=== PATIENT | male | born 1970 | race Hispanic/Latino ===

== ENCOUNTER 2016-06-23 08:54 | Inpatient (IN) | payer MEDICAID ==
[2016-06-23 09:51] LABS: Basophils % (Auto) 0.1 % (0.0-1.8); Eosinophils % (Auto) 6.3 % (0.0-4.3); Hematocrit 42.3 % (35.5-45.6); Hemoglobin 14.5 gm/dl (11.8-15.2); Mean Corpuscular HGB Conc 34 % (32-34); Mean Corpuscular Hemoglobin 30 pg (28-32); Mean Corpuscular Volume 88 fl (84-94); Platelet Count 184 K/mm3 (140-440); Red Blood Count 4.82 M/mm3 (3.65-5.03); Red Cell Distribution Width 13.3 % (13.2-15.2); White Blood Count 10.4 K/mm3 (4.5-11.0)
[2016-06-23 10:11] LABS: Anion Gap 16 mmol/L; Blood Urea Nitrogen 19 mg/dL (9-20); Calcium 9.7 mg/dL (8.4-10.2); Carbon Dioxide 26 mmol/L (22-30); Chloride 99.2 mmol/L (98-107); Glucose 157 mg/dL (75-100); Potassium 3.8 mmol/L (3.6-5.0); Sodium 137 mmol/L (137-145)
[2016-06-23] MEDS ORDERED: MORPHINE IV ONE ×2 (10:17→12:06)
[2016-06-23] MEDS ORDERED: ZOFRAN IV ONE (10:17)
--- NOTE | 2016-06-23 10:18 | Emergency Department Report ---
ED Chest Pain HPI - General Chief Complaint: Chest Pain Stated Complaint: CHEST PAIN Time Seen by Provider: 06/23/16 10:05 Source: patient, EMS Mode of arrival: Stretcher Limitations: No Limitations - History of Present Illness Initial Comments: States he awoke at about 5:30 in the AM with a panic attack. He did have some hyperventilation. He took a Xanax and seemed to improve. Then later on in the morning he developed left-sided chest pain. The pain is sharp. The patient states he does have frequent chest pain which is sharp but not this persistent. He stated that it felt worse when he laid on his back and better when he laid on his side. It was not pleuritic. It is not associated with nausea vomiting or cough. The patient has had no calf or leg pain. He states he gets an occasional "cramp in his right ankle which gets swollen". 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 He states he has a primary care physician. The patient has had 2 cardiac catheterizations in the past. 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 His last catheterization was 8 years ago. He states that he is a heavy smoker and has not followed up with cardiology since then. He knows nothing about his right sided heart pressures. He denies ever being on an anti-coagulant medication. He states he was told at some point his PDA repair would have to be revised. He has not followed up on this. The patient was given nitroglycerin and aspirin prior to arrival by EMS. According to EMS, the pain is improved. However, this is not apparent on patient arrival. MD Complaint: chest pain -: hour(s) Onset: during rest Pain Location: left chest Pain Radiation: none Severity: moderate Severity scale (0 -10): 6 Quality: sharp Consistency: constant Improves With: nothing Worsens With: other (position) re: dyspnea (sts due to panic) - Related Data Home Medications Medication Instructions Recorded Confirmed Last Taken ALPRAZolam [Xanax TAB] 0.5 mg PO TID PRN 06/23/16 06/23/16 06/23/16 0.5 mg Allergies Allergy/AdvReac Type Severity Reaction Status Date / Time No Known Allergies Allergy Unverified 04/16/17 09:02 STEWART score - Stewart Score Age > 65: (0) No Aspirin use within the Past 7 Days: (0) No 3 or more CAD Risk Factors: (1) Yes 2 or more Angina events in past 24 hrs: (0) No Known CAD with more than 50% Stenosis: (0) No Elevated Cardiac Markers: (0) No ST Deviation Greater than 0.5mm: (0) No STEWART Score: 1 ED Review of Systems ROS: Stated complaint: CHEST PAIN Other details as noted in HPI ED Past Medical Hx - Past Medical History Previous Medical History?: Yes Hx Hypertension: Yes Hx Psychiatric Treatment: Yes (anxiety) - Surgical History Hx Open Heart Surgery: Yes (at 2 years old) Hx Appendectomy: Yes Additional Surgical History: 2 cardiac caths-last one 7-8 years ago - Social History Smoking Status: Current Every Day Smoker Substance Use Type: None - Medications Home Medications: Home Medications Medication Instructions Recorded Confirmed Last Taken Type ALPRAZolam [Xanax TAB] 0.5 mg PO TID PRN 06/23/16 06/23/16 06/23/16 History 0.5 mg ED Physical Exam - General Limitations: No Limitations, Other (patient appears to be having positional discomfort white to lay on his left side) General appearance: alert, in no apparent distress - Head Head exam: Present: atraumatic, normocephalic - Eye Eye exam: Present: normal appearance, PERRL, EOMI. Absent: scleral icterus - ENT ENT exam: Present: mucous membranes moist - Neck Neck exam: Present: normal inspection - Respiratory Respiratory exam: Present: normal lung sounds bilaterally. Absent: respiratory distress - Cardiovascular Cardiovascular Exam: Present: regular rate, normal rhythm, systolic murmur (3/6 systolic murmur heard best at the right second intercostal space). Absent: diastolic murmur, rubs, gallop - GI/Abdominal GI/Abdominal exam: Present: soft, normal bowel sounds. Absent: distended, tenderness, guarding, rebound, rigid - Rectal Rectal exam: Present: deferred - Extremities Exam Extremities exam: Present: normal inspection - Back Exam Back exam: Present: normal inspection - Neurological Exam Neurological exam: Present: alert, oriented X3, CN II-XII intact. Absent: motor sensory deficit - Psychiatric Psychiatric exam: Present: normal affect, normal mood - Skin Skin exam: Present: warm, dry, intact, normal color. Absent: rash ED Course Vital Signs 06/23/16 06/23/16 06/23/16 08:55 08:56 08:57 Temperature Pulse Rate 89 92 H 93 H Respiratory 14 12 13 Rate Blood Pressure 107/69 O2 Sat by Pulse 99 99 Oximetry 06/23/16 06/23/16 06/23/16 09:00 09:05 09:15 Temperature 98.4 F Pulse Rate 85 87 Respiratory 18 18 25 H Rate Blood Pressure 112/88 115/82 O2 Sat by Pulse 98 98 98 Oximetry 06/23/16 09:31 Temperature Pulse Rate 79 Respiratory 16 Rate Blood Pressure 131/83 O2 Sat by Pulse 97 Oximetry - Reevaluation(s) Reevaluation #1: The patient's chest pain is atypical in nature and not significantly predictive of an acute coronary syndrome. However, he does have multiple risk factors. His PDA status does require an update anyway. He is admitted by Dr. Costa for cardiology consultation, further care and evaluation. 06/23/16 10:35 ED Medical Decision Making - Lab Data Result diagrams: 06/23/16 09:37 06/23/16 09:37 Laboratory Results - last 24 hr 06/23/16 06/23/16 09:37 09:37 WBC 10.4 RBC 4.82 Hgb 14.5 Hct 42.3 MCV 88 MCH 30 MCHC 34 RDW 13.3 Plt Count 184 Lymph % (Auto) 30.3 Wayne % (Auto) 6.6 Eos % (Auto) 6.3 H Baso % (Auto) 0.1 Lymph # 3.1 Wayne # 0.7 Eos # 0.7 H Baso # 0.0 Seg Neutrophils % 56.7 Seg Neutrophils # 5.9 Sodium 137 Potassium 3.8 Chloride 99.2 Carbon Dioxide 26 Anion Gap 16 BUN 19 Creatinine 1.0 Estimated GFR > 60 BUN/Creatinine Ratio 19.00 Glucose 157 H Calcium 9.7 Troponin T < 0.010 - EKG Data -: EKG Interpreted by Me EKG shows normal: sinus rhythm, axis, intervals, ST-T waves - EKG Data Interpretation: nonspecific ST-T wave yvonne, other (RSR in V1 consistent with incomplete right bundle branch block. No acute ischemic changes) - Radiology Data interpreted by me: Chest x-ray showed a slightly abnormal Mediastinum was not wide. I suspect this is reflective of the patient's PDA hx. very soft call however. There is no acute process. Critical care attestation.: If time is entered above; I have spent that time in minutes in the direct care of this critically ill patient, excluding procedure time. ED Disposition Clinical Impression: S/P PDA repair Chest pain Qualifiers: Chest pain type: unspecified Qualified Code(s): R07.9 - Chest pain, unspecified Disposition: OP ADMITTED IP TO THIS HOSP Is pt being admited?: Yes Does the pt Need Aspirin: Yes Condition: Stable Instructions: Chest Pain (ED) Referrals: PRIMARY CARE, [Primary Care Provider] - 3-5 Days Time of Disposition: 10:42
[2016-06-23 10:44] LABS: INR 0.93 (0.87-1.13)
[2016-06-23 10:45] LABS: Partial Thromboplastin Time 33.8 Sec. (24.2-36.6)
[2016-06-23 10:54] LABS: Alanine Aminotransferase 22 units/L (7-56); Albumin 3.9 g/dL (3.9-5); Albumin/Globulin Ratio 1.4 %; Alkaline Phosphatase 97 units/L (35-129); Bilirubin,Total 0.4 mg/dL (0.1-1.2); Total Protein 6.7 g/dL (6.3-8.2)
[2016-06-23 10:56] LABS: Bilirubin,Direct < 0.2 mg/dL (0-0.2)
[2016-06-23] MEDS ORDERED: LOVENOX SUB-Q SCH (11:00)
[2016-06-23] MEDS ORDERED: BABY ASPIRIN PO SCH (11:00)
--- NOTE | 2016-06-23 11:19 | XRay Report ---
AP CHEST : 06/23/16 08:54:00 CLINICAL: Retention. COMPARISON:None FINDINGS: Normal heart and pulmonary vessels. The lungs are normally expanded and clear. The bones and soft tissues are unremarkable. IMPRESSION: Normal chest.
--- NOTE | 2016-06-23 11:49 | Admit Criteria Form ---
Admission Criteria Documentation: CARDIOLOGY GRG Clinical Indications for Admission to Inpatient Care ( Place 'X' for any and all applicable criteria): Hospital admission is needed for appropriate care of the patient because of ANY ONE of the following (1): [ ] I. Hemodynamic instability as indicated by ALL of the following (1)(2)(3) (4)(5) [ ]a) Vital signs or other findings not as expected for chronic patient condition or baseline [ ]b) Instability indicated by ANY ONE of the following: [ ]i) Hypotension [ ]ii) Symptomatic Tachycardia unresponsive to treatment ( e.g., analgesia, fluids, sedation as indicated) [ ]iii) Inadequate perfusion indicated by ANY ONE of the following: [ ] 1) Lactic acidosis (> 2 mmol/L) [ ] 2) New abnormal capillary refill (> 3 seconds) [ ] 3) Reduced urine output [ ] 4) New altered mental status [ ]iv) Orthostatic vital sign changes unresponsive to treatment (e.g., fluids) [ ]v) IV inotropic or vasopressor medication required to maintain adequate blood pressure or perfusion [ ] II. Severe heart failure as indicated by ANY ONE of the following(17)(18) [ ]a) Respiratory distress [ ]b) Hypotension [ ]c) Anasarca (refractory to outpatient therapy) [ ]d) Cardiac arrhythmias of immediate concern [ ]e) Myocardial ischemia [ ] III. Cardiac arrhythmias or findings of immediate concern indicated by ANY ONE of the following (19)(20): [ ] a) Heart rhythms that are inherently dangerous or unstable indicated by ANY ONE of the following (21)(22)(23): [ ] i) Resuscitated ventricular fibrillation or cardiac arrest [ ] ii) Ventricular escape rhythm [ ] iii) Sustained ventricular tachycardia (30 seconds or more of ventricular rhythm at greater than 100 beats per minute) [ ] iv) Nonsustained ventricular tachycardia and ANY ONE of the following: [ ] 1) Suspected cardiac ischemia as cause or consequence of ventricular tachycardia [ ] 2) In setting of acute myocarditis [ ] b) Unstable cardiac conduction defects indicated by ANY ONE of the following(23)(24)(25) [ ] i) Type II second-degree atrioventricular block [ ]ii) Third-degree atrioventricular block [ ]iii) New-onset left bundle branch block with suspected myocardial ischemia [ ]c) Any heart rhythm and ANY ONE of the following (21)(22)(26)(27) (28) [ ] i) Continuous long-term ECG monitoring needed (e.g., initiation of drug requiring monitoring for more than 24 hours) [ ] ii) Patient has automatic implanted cardioverter defibrillator that is repeatedly firing, malfunctioning, or in need of immediate adjustment of settings beyond the scope of ambulatory or observation care [ ]d) Heart rhythms of concern due to ANY ONE of the following: [ ] i) Hypotension [ ] ii) Respiratory distress [ ] iii) Association with other significant symptoms (e.g., bradycardia with syncope or ongoing dizziness, supraventricular tachycardia with chest pain (14)(15)(17) [ ] IV. Monitoring for cardiac contusion beyond the scope of observation care needed [A](30)(31)(32) [ ] V. Surgical or device complication (e.g., valve replacement complication , pacemaker dysfunction) (35)(41)(44)(45)(46) [ ] . Inpatient palliative care needed. [B](49) Also use Inpatient Palliative Care Criteria [ ] VII. Nonbacterial thrombotic (marantic) endocarditis (36)(43)(47)(48) [X ] VIII. Cardiology condition, symptom, or finding for which emergency and observation care has failed or are not considered appropriate. [ ] IX. Acute valvular disease requiring inpatient as indicated by ANY ONE of the following (41) [ ]a) Acute valvular regurgitation (42) [ ]b) Noninfectious valvulitis (43) [ ]c) Obstructive valve thrombosis [ ]d) Paravalvular leak [ ]e) Other significant valvular disorder remaining after emergency or observation level of care (as appropriate) [ ]X. Pericardial disease requiring inpatient treatment as indicated by ANY ONE of the following (33)(34)(35)(36)(37) [ ]a) Suspected tamponade (38)(39)(40) [ ]b) Hemopericardium [ ]c) Other significant pericardial disorder remaining after emergency or observation level of care (as appropriate) [ ] XI. Cardiac ischemia beyond scope of emergency and observation care. [ ] XII. Hypertension requiring inpatient treatment as indicated by ANY ONE of the following (6)(7)(8) [ ]a) SBP greater than 220 mm Hg or DBP greater than 120 mmHg despite treatment [ ]b) SBP greater than 140 mm Hg or DBP greater than 100 mm Hg with evidence of acute end organ damage as indicated by ANY ONE of the following [ ] i) Altered mental status [ ] ii) Acute renal failure as indicated by new onset of ANY ONE of the following (9)(10)(11)(12)(13) [ ]1) 3-fold rise in serum creatinine from baseline [ ]2) Serum creatinine greater than 4 mg/dL ( 354 micromoles/L) with acute rise greater than 0.5 mg/dL (44.2 micromoles/L) [ ]3) Reduction of more than 75% in estimated glomerular filtration rate from baseline [ ]4) Estimated glomerular filtration rate less than 35 mL/min/1.73m2 (0.59 mL/sec/1.73m2) in child up to 18 years of age [ ]5) Cessation of urine output indicated by ALL of the following [ ]A. Adequate volume status [ ]B. Inadequate urine output as indicated by ANY ONE of the following [ ]a. Urine output less than 0.3 mL/kg/hr for 24 hours [ ]b. Anuria (urine output less than 0.1 mL/kg/hr) for 12 hours [ ] iii) Aortic dissection [ ] iv) Myocardial Ischemia [ ] v) Left ventricular heart failure [ ]vi) Retinal Hemorrhage [ ]vii) Other significant finding [ ]c) Hypertension in child requiring inpatient treatment as indicated by ALL of the following(14)(15)(16) [ ] i) Outpatient treatment not effective, not available, or not appropriate [ ]ii) SBP or DBP greater than 95th percentile for age [ ]iii) Evidence of acute end organ damage as indicated by ANY ONE of the following [ ]1) Altered mental status [ ]2) Acute renal failure as indicated by new onset of ANY ONE of the following(9)(10)(11)(12)(13) [ ]A. 3-fold rise in serum creatinine from baseline [ ]B. Serum creatinine greater than 4 mg/dL (354 micromoles/L) with acute rise greater than 0.5 mg/dL (44.2 micromoles/L) [ ]C. Reduction of more than 75% in estimated glomerular filtration rate from baseline [ ]D. Estimated glomerular filtration rate less than 35 mL/min/1.73m2 (0.59 mL/sec/1.73m2) in child up to 18 years of age [ ]E. Cessation of urine output indicated by ALL of the following [ ]a. Adequate volume status [ ]b. Inadequate urine output as indicated by ANY ONE of the following [ ]i) Urine output less than 0.3 mL/kg/hr for 24 hours [ ]ii) Anuria ( urine output less than 0.1 mL/kg/hr) for 12 hours [ ]3) Severe headache [ ]4) Visual disturbance [ ]5) Retinal hemorrhage [ ]6) Other significant finding [ ]XIII. Complications of transplanted heart indicated by ANY ONE of the following(61): [ ]a) Acute graft rejection requiring inpatient management (eg, intravenous immunosuppression)(62)(63) [ ]b) Acute graft heart failure indicated by ANY ONE of the following(64): [ ]i) Hemodynamic instability [ ]ii) Cardiac arrhythmias of immediate concern [ ]iii) Pulmonary edema that is very severe (eg, mechanical ventilation needed, imminent or likely, need for 100% oxygen to keep oxygen saturation above 90%) [ ]iv) Pulmonary edema that is persistent as indicated by ALL of the following: [ ]1) New need for oxygen therapy to keep oxygen saturation above 90% (or increased FiO2 need from baseline) [ ]2) Has not improved sufficiently with emergency department or observation care IV diuretics or other heart failure treatments[E] [ ]v) Altered mental status that is severe or persistent [ ]vi) Increased creatinine (new on laboratory test) with reduction of more than 50% in estimated glomerular filtration rate from baseline [ ]vii) Progressively (ongoing) rising creatinine (known from past laboratory test) with reduction of more than 25% in estimated glomerular filtration rate from baseline [ ]viii) Acute renal failure [ ]ix) Acute peripheral ischemia (eg, examination shows pulseless, cool, mottled, or cyanotic extremity) [ ]x) Pulmonary artery catheter monitoring needed [ ]xi) Other sign or symptom of heart failure requiring inpatient treatment (ie, too severe or not responsive to outpatient and observation care treatment) [ ]c) Infection requiring inpatient management (eg, Hemodynamic instability, need for intravenous antimicrobial treatment)(66)(67)(68)(69)(70) [ ]d) Cardiac allograft vasculopathy requiring inpatient management ( eg evidence of cardiac ischemia)(71) [ ]e) Other complication of transplanted heart (eg, stroke, severe pulmonary hypertension, severe valvular dysfunction) requiring inpatient management(72) The original [facility] [employer] content created by [facility] has been revised. The portions of the content which have been revised are identified through the use of italic text or in bold, and [facility] has neither reviewed nor approved the modified material. All other unmodified content is copyright [facility] [employer]. Please see references footnoted in the original [facility] [employer] edition 2016 Admission Criteria Met: Yes
[2016-06-23] MEDS ORDERED: MORPHINE ONE (12:04)
[2016-06-23 12:20] LABS: Urine Drugs of Abuse Note Disclamer
[2016-06-23 12:29] LABS: Bilirubin,Urine NEG (Negative); Blood,Urine NEG (Negative); Ketones,Urine NEG (Negative); Leukocyte Esterase,Urine NEG (Negative); Mucus,Urine FEW /HPF; Nitrite,Urine NEG (Negative); Protein,Urine <15 mg/dL mg/dL (Negative); Urobilinogen,Urine < 2.0 mg/dL (<2.0)
--- NOTE | 2016-06-23 13:36 | History and Physical Report ---
History of Present Illness Date of examination: 06/23/16 Date of admission: 06/23/16 10:42 Chief complaint: Chief Complaint:L sided chest pain since AM. History of present illness: 45 y/o WM with Hx of PDA(repaired} CAD Anxiety and depression comes in for severe chest pain L precordial region.Sharp in nature.Intermittent.10/10 in intensity..Has Hx of GERD but he feels that this pain is different.No SOB / Diaphoresis/Palpitations. No Nausea or vomiting. Past History Past Medical History: CAD, hypertension, other (PDA Anxiety) Past Surgical History: PTCA, Other (PDA repair) Social history: lives with family, smoking (1 ppd) Family history: hypertension Medications and Allergies Allergies Allergy/AdvReac Type Severity Reaction Status Date / Time No Known Allergies Allergy Verified 06/23/16 10:44 Home Medications Medication Instructions Recorded Confirmed Last Taken Type ALPRAZolam [Xanax TAB] 0.5 mg PO TID PRN 06/23/16 06/23/16 06/23/16 History 0.5 mg Active Meds: Active Medications Aspirin (Baby Aspirin) 162 mg PO ONCE DAVIAN Enoxaparin Sodium (Lovenox) 40 mg SUB-Q QDAY@1000 DAVIAN Review of Systems All systems: negative Constitutional: no weight loss, no weight gain Ears, nose, mouth and throat: no ear pain, no ear discharge, no tinnitis, no decreased hearing, no nose pain, no nasal congestion, no nasal discharge, no sinus pressure, no sinus pain Cardiovascular: chest pain Respiratory: no cough, no cough with sputum, no excessive sputum, no hemoptysis , no shortness of breath, no dyspnea on exertion Gastrointestinal: no abdominal pain, no nausea, no vomiting, no diarrhea, no constipation, no change in bowel habits, no hematemesis, no coffee ground emesis Genitourinary Male: no dysuria, no hematuria, no flank pain, no discharge, no urinary frequency, no urinary hesitancy, no nocturia, no incontinence, no erectile dysfunction, no genital pain Musculoskeletal: no neck stiffness, no neck pain, no shooting arm pain, no arm numbness/tingling, no low back pain, no shooting leg pain, no leg numbness/ tingling, no redness of joints Integumentary: no rash, no pruritis, no redness, no sores, no wounds, no jaundice Neurological: no head injury, no transient paralysis, no paralysis, no weakness , no parathesias, no numbness, no tingling, no seizures, no syncope, no tremors , no ataxia, no lack of coordination Psychiatric: anxiety, depression Endocrine: no cold intolerance, no heat intolerance, no polyphagia, no excessive thirst, no polydipsia, no polyuria, no nocturia, no excessive sweating , no flushing, no weight change Hematologic/Lymphatic: no easy bruising, no easy bleeding Allergic/Immunologic: no urticaria, no allergic rhinitis, no wheezing Exam - Constitutional Vitals: Temp Pulse Resp BP Pulse Ox 98.4 F 69 9 L 97/64 98 06/23/16 09:05 06/23/16 12:30 06/23/16 12:30 06/23/16 12:30 06/23/16 12:30 General appearance: Present: no acute distress, well-nourished - EENT Eyes: Present: PERRL ENT: hearing intact, clear oral mucosa - Neck Neck: Present: supple, normal ROM - Respiratory Respiratory effort: normal Respiratory: bilateral: CTA - Cardiovascular Heart rate: 76 Rhythm: regular Heart Sounds: Present: S1 & S2. Absent: rub, click - Extremities Extremities: pulses symmetrical, No edema Peripheral Pulses: within normal limits - Abdominal General gastrointestinal: Present: soft, non-tender, non-distended, normal bowel sounds Male genitourinary: Present: normal - Integumentary Integumentary: Present: clear, warm, dry - Musculoskeletal Musculoskeletal: gait normal, strength equal bilaterally - Psychiatric Psychiatric: appropriate mood/affect, intact judgment & insight - Neurologic Neurologic: CNII-XII intact, moves all extremities Results - Labs CBC & Chem 7: 06/23/16 09:37 06/23/16 09:37 Labs: Laboratory Last Values WBC 10.4 K/mm3 (4.5-11.0) 06/23/16 09:37 RBC 4.82 M/mm3 (3.65-5.03) 06/23/16 09:37 Hgb 14.5 gm/dl (11.8-15.2) 06/23/16 09:37 Hct 42.3 % (35.5-45.6) 06/23/16 09:37 MCV 88 fl (84-94) 06/23/16 09:37 MCH 30 pg (28-32) 06/23/16 09:37 MCHC 34 % (32-34) 06/23/16 09:37 RDW 13.3 % (13.2-15.2) 06/23/16 09:37 Plt Count 184 K/mm3 (140-440) 06/23/16 09:37 Lymph % (Auto) 30.3 % (13.4-35.0) 06/23/16 09:37 [place] % (Auto) 6.6 % (0.0-7.3) 06/23/16 09:37 Eos % (Auto) 6.3 % (0.0-4.3) H 06/23/16 09:37 Baso % (Auto) 0.1 % (0.0-1.8) 06/23/16 09:37 Lymph # 3.1 K/mm3 (1.2-5.4) 06/23/16 09:37 [place] # 0.7 K/mm3 (0.0-0.8) 06/23/16 09:37 Eos # 0.7 K/mm3 (0.0-0.4) H 06/23/16 09:37 Baso # 0.0 K/mm3 (0.0-0.1) 06/23/16 09:37 Seg Neutrophils % 56.7 % (40.0-70.0) 06/23/16 09:37 Seg Neutrophils # 5.9 K/mm3 (1.8-7.7) 06/23/16 09:37 PT 12.4 Sec. (12.2-14.9) 06/23/16 10:25 INR 0.93 (0.87-1.13) 06/23/16 10:25 APTT 33.8 Sec. (24.2-36.6) 06/23/16 10:25 Sodium 137 mmol/L (137-145) 06/23/16 09:37 Potassium 3.8 mmol/L (3.6-5.0) 06/23/16 09:37 Chloride 99.2 mmol/L (98-107) 06/23/16 09:37 Carbon Dioxide 26 mmol/L (22-30) 06/23/16 09:37 Anion Gap 16 mmol/L 06/23/16 09:37 BUN 19 mg/dL (9-20) 06/23/16 09:37 Creatinine 1.0 mg/dL (0.8-1.5) 06/23/16 09:37 Estimated GFR > 60 ml/min 06/23/16 09:37 BUN/Creatinine Ratio 19.00 % 06/23/16 09:37 Glucose 157 mg/dL (75-100) H 06/23/16 09:37 Calcium 9.7 mg/dL (8.4-10.2) 06/23/16 09:37 Total Bilirubin 0.4 mg/dL (0.1-1.2) 06/23/16 09:37 Direct Bilirubin < 0.2 mg/dL (0-0.2) 06/23/16 09:37 AST 17 units/L (5-40) 06/23/16 09:37 ALT 22 units/L (7-56) 06/23/16 09:37 Alkaline Phosphatase 97 units/L (35-129) 06/23/16 09:37 Troponin T < 0.010 ng/mL (0.00-0.029) 06/23/16 09:37 NT-Pro-B Natriuret Pep 67.72 pg/mL (0-450) 06/23/16 09:37 Total Protein 6.7 g/dL (6.3-8.2) 06/23/16 09:37 Albumin 3.9 g/dL (3.9-5) 06/23/16 09:37 Albumin/Globulin Ratio 1.4 % 06/23/16 09:37 Urine Color Yellow (Yellow) 06/23/16 11:59 Urine Turbidity Clear (Clear) 06/23/16 11:59 Urine pH 5.0 (5.0-7.0) 06/23/16 11:59 Ur Specific [place] 1.019 (1.003-1.030) 06/23/16 11:59 Urine Protein <15 mg/dl mg/dL (Negative) 06/23/16 11:59 Urine Glucose (UA) Neg mg/dL (Negative) 06/23/16 11:59 Urine Ketones Neg mg/dL (Negative) 06/23/16 11:59 Urine Blood Neg (Negative) 06/23/16 11:59 Urine Nitrite Neg (Negative) 06/23/16 11:59 Urine Bilirubin Neg (Negative) 06/23/16 11:59 Urine Urobilinogen < 2.0 mg/dL (<2.0) 06/23/16 11:59 Ur Leukocyte Esterase Neg (Negative) 06/23/16 11:59 Urine WBC (Auto) 1.0 /HPF (0.0-6.0) 06/23/16 11:59 Urine RBC (Auto) 1.0 /HPF (0.0-6.0) 06/23/16 11:59 Urine Mucus Few /HPF 06/23/16 11:59 Urine Opiates Screen Presumptive negative 06/23/16 11:59 Urine Methadone Screen Presumptive negative 06/23/16 11:59 Ur Barbiturates Screen Presumptive negative 06/23/16 11:59 Ur Phencyclidine Scrn Presumptive negative 06/23/16 11:59 Ur Amphetamines Screen Presumptive negative 06/23/16 11:59 U Benzodiazepines Scrn Presumptive positive 06/23/16 11:59 Urine Cocaine Screen Presumptive negative 06/23/16 11:59 U Marijuana (THC) Screen Presumptive positive 06/23/16 11:59 Short CBC 06/23/16 Range/Units 09:37 WBC 10.4 (4.5-11.0) K/mm3 Hgb 14.5 (11.8-15.2) gm/dl Hct 42.3 (35.5-45.6) % Plt Count 184 (140-440) K/mm3 BMP 06/23/16 09:37 Sodium 137 Potassium 3.8 Chloride 99.2 Carbon Dioxide 26 BUN 19 Creatinine 1.0 Glucose 157 H Calcium 9.7 Cardiac Enzymes 06/23/16 Range/Units 09:37 Troponin T < 0.010 (0.00-0.029) ng/mL Liver Function 06/23/16 Range/Units 09:37 Total Bilirubin 0.4 (0.1-1.2) mg/dL Direct Bilirubin < 0.2 (0-0.2) mg/dL AST 17 (5-40) units/L ALT 22 (7-56) units/L Alkaline Phosphatase 97 (35-129) units/L Albumin 3.9 (3.9-5) g/dL Urine 06/23/16 Range/Units 11:59 Urine Color Yellow (Yellow) Urine pH 5.0 (5.0-7.0) Ur Specific [place] 1.019 (1.003-1.030) Urine Protein <15 mg/dl (Negative) mg/dL Urine Glucose (UA) Neg (Negative) mg/dL Assessment and Plan Advance Directives: Yes (Full code) Plan of care discussed with patient/family: Yes - Patient Problems (1) Acute coronary syndrome Current Visit: Yes Status: Acute Plan to address problem: W/u for ruling out Ischemic heart disease.Lexiscan in AM.Serial cardiac enzymes (2) S/P PDA repair Current Visit: Yes Status: Chronic Plan to address problem: Will get ECHO and cardiology consult. (3) HTN (hypertension) Current Visit: Yes Status: Chronic Qualifiers: Hypertension type: essential hypertension Qualified Code(s): I10 - Essential (primary) hypertension Plan to address problem: Cont antihypertensives (4) Anxiety Current Visit: Yes Status: Chronic Plan to address problem: Cont Xanax (5) Depression Current Visit: Yes Status: Chronic Qualifiers: Depression Type: unspecified Major depression recurrence: M Active/ Remission status: A Major depression episode severity: M Psychotic features : P Trimester: T Qualified Code(s): F32.9 - Major depressive disorder, single episode, unspecified Plan to address problem: Cont sertraline (6) DVT prophylaxis Current Visit: Yes Status: Acute Plan to address problem: lovenox
[2016-06-23] MEDS ORDERED: SODIUM CHLORIDE FLUSH SYRINGE 10 ML IV PRN (13:53)
[2016-06-23] MEDS: XANAX PO PRN (14:16)
[2016-06-23] MEDS: DILAUDID IV PRN ×3 (14:17→21:45)
[2016-06-23 15:22] LABS: Creatine Kinase 61 units/L (55-170)
[2016-06-23 15:29] LABS: Creatine Kinase MB < 1.0 ng/mL (0.0-4.0)
[2016-06-23] MEDS ORDERED: PNEUMOVAX 23 IM ONE (19:08)
[2016-06-23] MEDS ORDERED: FLUARIX QUAD 2016-2017(36 MOS+) IM ONE (19:08)
[2016-06-23 20:55] LABS: Creatine Kinase 79 units/L (55-170); Creatine Kinase MB 1.2 ng/mL (0.0-4.0)
[2016-06-23] MEDS: HABITROL TD SCH (22:00)
[2016-06-24] MEDS: DILAUDID IV PRN ×7 (01:10→23:01)
[2016-06-24] MEDS: ZOFRAN IV PRN ×2 (06:15→23:11)
[2016-06-24] MEDS: TYLENOL PO PRN (06:15)
[2016-06-24] MEDS ORDERED: LEXISCAN IV ONE ×2 (09:24→09:29)
[2016-06-24] MEDS: LOVENOX SUB-Q SCH (12:01)
[2016-06-24] MEDS: XANAX PO PRN ×2 (12:08→23:01)
--- NOTE | 2016-06-24 17:13 | History and Physical Report ---
History of Present Illness Date of examination: 06/24/16 Date of admission: 06/23/16 10:42 Chief complaint: Chest Pain History of present illness: Pt complains of chest pain. Denies nausea, vomiting, SOB and palpitations. Past History Past Medical History: CAD, hypertension, other (PDA Anxiety) Past Surgical History: PTCA, Other (PDA repair) Social history: lives with family, smoking (1 ppd) Family history: hypertension Medications and Allergies Allergies Allergy/AdvReac Type Severity Reaction Status Date / Time No Known Allergies Allergy Verified 06/23/16 10:44 Home Medications Medication Instructions Recorded Confirmed Last Taken Type ALPRAZolam [Xanax TAB] 0.5 mg PO TID PRN 06/23/16 06/23/16 06/23/16 History 0.5 mg Active Meds: Active Medications Acetaminophen (Tylenol) 650 mg PO Q4H PRN PRN Reason: Pain, Mild (1-3) Last Admin: 06/24/16 06:15 Dose: 650 mg Alprazolam (Xanax) 0.5 mg PO TID PRN PRN Reason: Anxiety Last Admin: 06/24/16 12:08 Dose: 0.5 mg Aspirin (Baby Aspirin) 162 mg PO ONCE DAVIAN Last Admin: 06/23/16 14:02 Dose: 162 mg Enoxaparin Sodium (Lovenox) 40 mg SUB-Q QDAY@1000 [facility] Last Admin: 06/24/16 12:01 Dose: 40 mg Hydromorphone HCl (Dilaudid) 2 mg IV Q3H PRN PRN Reason: Pain , Severe (7-10) Last Admin: 06/24/16 15:46 Dose: 2 mg Nicotine (Habitrol) 21 mg TD QDAY@2200 [facility] Last Admin: 06/23/16 22:00 Dose: 21 mg Ondansetron HCl (Zofran) 4 mg IV Q3H PRN PRN Reason: Nausea And Vomiting Last Admin: 06/24/16 06:15 Dose: 4 mg Sodium Chloride (Sodium Chloride Flush Syringe 10 Ml) 10 ml IV PRN PRN PRN Reason: LINE FLUSH Review of Systems Constitutional: no weight loss, no weight gain, no fever, no chills, no sweats, no weakness, no daytime sleepiness Ears, nose, mouth and throat: no deferred, no ear pain, no decreased hearing, no nasal congestion, no mouth pain, no sore throat, no voice changes Cardiovascular: chest pain, high blood pressure, no orthopnea, no palpitations, no rapid/irregular heart beat Respiratory: no cough, no cough with sputum, no excessive sputum, no hemoptysis Gastrointestinal: no abdominal pain, no nausea, no vomiting, no diarrhea, no constipation, no change in bowel habits, no loss of appetite Musculoskeletal: no neck stiffness, no neck pain, no low back pain, no shooting leg pain, no leg numbness/tingling, no muscle weakness, no loss of height Integumentary: no deferred, no rash, no redness, no jaundice, no darkening of skin, no onychomycosis Neurological: no head injury, no transient paralysis, no paralysis, no weakness , no convulsions, no hearing difficulties Psychiatric: anxiety, depression, no memory loss, no hypersomnia, no hallucinations, no mood swings Endocrine: no cold intolerance, no excessive thirst, no polyuria, no thyroid mass Hematologic/Lymphatic: no easy bleeding, no lymphedema Allergic/Immunologic: no allergic rhinitis, no gluten intolerance Exam - Constitutional Vitals: Temp Pulse Resp BP Pulse Ox 97.4 F L 76 20 122/70 98 06/24/16 12:44 06/24/16 12:44 06/24/16 15:46 06/24/16 12:44 06/24/16 12:44 General appearance: Present: no acute distress, well-nourished - EENT Eyes: Present: PERRL ENT: hearing intact, clear oral mucosa - Neck Neck: Present: supple, normal ROM - Respiratory Respiratory effort: normal Respiratory: bilateral: CTA - Cardiovascular Heart Sounds: Present: S1 & S2. Absent: rub, click - Extremities Extremities: pulses symmetrical, No edema Peripheral Pulses: within normal limits - Abdominal General gastrointestinal: Present: soft, non-tender, non-distended, normal bowel sounds - Integumentary Integumentary: Present: clear, warm, dry - Musculoskeletal Musculoskeletal: gait normal, strength equal bilaterally - Psychiatric Psychiatric: appropriate mood/affect, intact judgment & insight, depressed, other (anxiety) - Neurologic Neurologic: CNII-XII intact, moves all extremities Results - Labs CBC & Chem 7: 06/23/16 09:37 06/23/16 09:37 Assessment and Plan 1. Chest Pain - Chest X-ray done on 06.23.2016 was normal. Echocardiogram done on 06/24/2016 showed moderate aortic leaflet calcification and mild Left ventricular hypertrophy. EF is 55-60%. Thallium test done 06.24.2016 was negative. 2. Hyperglycemia: Pt has no history of DM. Fmikly history of Diabetes Mellitus. Obtain HbA1c. Blood Lab Blood Test done on 06/24/2016 showed high glucose levels of 157mg/dL. 3. Anxiety - Continue Xanax 0.5mg po TID prn. 4. Depression. 5. DVT Prophylaxis - Lovenox 40mg SubQ QD. 6. GI Prophylaxis - Zofran 4mg IV q3hrs prn.
--- NOTE | 2016-06-24 17:21 | Consultation ---
History of Present Illness Consult date: 06/24/16 Consult reason: chest pain History of present illness: The patient's a 45-year-old man who presented with chest pain. His chest pain is atypical and poorly characterized, with no significant associated symptoms. ECG on presentation was normal with no ischemic changes, cardiac enzymes were negative, and the patient was ordered for a thallium stress test. We performed a thallium stress test today which was negative. He was also ordered for an echocardiogram, on our review, he has normal left ventricle systolic function, but evidence of severe aortic stenosis with a mean transaortic gradient of 58-68 mmHg. The patient appears unaware of a history of aortic stenosis. His past cardiac history is notable for patent ductus arteriosus at , which he states was repaired with a patch closure during his infancy. Otherwise, he has had at least 2 cardiac catheterizations in the past 10 years, which he states were reported as "fine". The test were done at [facility] and the [facility]. Past History Past Medical History: hypertension, other (anxiety) Past Surgical History: PTCA, Other (PDA repair) Social history: lives with family, smoking (1 ppd) Family history: hypertension Medications and Allergies Allergies Allergy/AdvReac Type Severity Reaction Status Date / Time No Known Allergies Allergy Verified 06/23/16 10:44 Home Medications Medication Instructions Recorded Confirmed Last Taken Type ALPRAZolam [Xanax TAB] 0.5 mg PO TID PRN 06/23/16 06/23/16 06/23/16 History 0.5 mg Active Meds: Active Medications Acetaminophen (Tylenol) 650 mg PO Q4H PRN PRN Reason: Pain, Mild (1-3) Last Admin: 06/24/16 06:15 Dose: 650 mg Alprazolam (Xanax) 0.5 mg PO TID PRN PRN Reason: Anxiety Last Admin: 06/24/16 12:08 Dose: 0.5 mg Aspirin (Baby Aspirin) 162 mg PO ONCE DAVIAN Last Admin: 06/23/16 14:02 Dose: 162 mg Enoxaparin Sodium (Lovenox) 40 mg SUB-Q QDAY@1000 DAVIAN Last Admin: 06/24/16 12:01 Dose: 40 mg Hydromorphone HCl (Dilaudid) 2 mg IV Q3H PRN PRN Reason: Pain , Severe (7-10) Last Admin: 06/24/16 15:46 Dose: 2 mg Nicotine (Habitrol) 21 mg TD QDAY@2200 DAVIAN Last Admin: 06/23/16 22:00 Dose: 21 mg Ondansetron HCl (Zofran) 4 mg IV Q3H PRN PRN Reason: Nausea And Vomiting Last Admin: 06/24/16 06:15 Dose: 4 mg Sodium Chloride (Sodium Chloride Flush Syringe 10 Ml) 10 ml IV PRN PRN PRN Reason: LINE FLUSH Review of Systems Cardiovascular: chest pain, no orthopnea, no palpitations, no rapid/irregular heart beat, no edema, no syncope, no lightheadedness, no shortness of breath Physical Examination Vital Signs Pulse Resp 89 14 06/23/16 08:55 06/23/16 08:55 General appearance: no acute distress HEENT: Positive: PERRL Neck: Positive: neck supple Cardiac: Positive: Reg Rate and Rhythm, Systolic Murmur Lungs: Positive: Normal Exam Neuro: Positive: Grossly Intact Abdomen: Positive: Soft Male genitourinary: Positive: deferred Skin: Positive: Clear Extremities: Absent: edema Results 06/23/16 09:37 06/23/16 09:37 Cardiac Enzymes 06/23/16 Range/Units 20:10 CK-MB (CK-2) 1.2 (0.0-4.0) ng/mL EKG interpretations - Telemetry EKG Rhythm: Sinus Rhythm Assessment and Plan Patient is admitted with atypical chest pain, ECG and cardiac enzymes and normal. Thallium stress test is negative. However, echocardiogram demonstrates severe aortic stenosis. Recommend right and left heart catheterization for further assessment of the aortic stenosis.
--- NOTE | 2016-06-24 20:43 | Progress Note ---
Subjective Date of service: 06/24/16 Principal diagnosis: Chest pain Interval history: Still having chest pain. Had Lexiscan stress today which demonstrated severe aortic stenosis Objective - Constitutional Vitals: Vital Signs - 12hr 06/24/16 06/24/16 06/24/16 09:25 09:32 10:00 Temperature 97.7 F Pulse Rate 67 80 Pulse Rate [ 76 80 Left] Respiratory 18 20 Rate Respiratory 20 Rate [Chest] Blood Pressure 115/80 Blood Pressure 120/82 [Right Arm] O2 Sat by Pulse 93 98 Oximetry 06/24/16 06/24/16 06/24/16 10:20 10:21 10:22 Temperature Pulse Rate 91 H 99 H 92 H Pulse Rate [ Left] Respiratory Rate Respiratory Rate [Chest] Blood Pressure 109/78 124/76 101/69 Blood Pressure [Right Arm] O2 Sat by Pulse Oximetry 06/24/16 06/24/16 06/24/16 10:23 10:24 10:25 Temperature Pulse Rate 92 H 93 H 93 H Pulse Rate [ Left] Respiratory Rate Respiratory Rate [Chest] Blood Pressure 98/65 117/79 105/69 Blood Pressure [Right Arm] O2 Sat by Pulse Oximetry 06/24/16 06/24/16 06/24/16 12:01 12:44 15:46 Temperature 97.4 F L Pulse Rate Pulse Rate [ 76 Left] Respiratory 20 18 20 Rate Respiratory Rate [Chest] Blood Pressure Blood Pressure 122/70 [Right Arm] O2 Sat by Pulse 98 Oximetry 06/24/16 18:02 Temperature 97.6 F Pulse Rate Pulse Rate [ 68 Left] Respiratory 18 Rate Respiratory Rate [Chest] Blood Pressure Blood Pressure 105/73 [Right Arm] O2 Sat by Pulse 100 Oximetry General appearance: Present: no acute distress - EENT Eyes: PERRL, EOM intact - Neck Neck: supple, normal ROM - Respiratory Respiratory effort: normal Respiratory: bilateral: CTA - Cardiovascular Rhythm: regular Heart Sounds: Present: S1 & S2. Absent: gallop, rub Extremities: pulses intact, No edema, normal color, Full ROM - Gastrointestinal General gastrointestinal: Present: soft, non-tender - Integumentary Integumentary: clear, warm, dry - Musculoskeletal Musculoskeletal: 1, strength equal bilaterally - Psychiatric Psychiatric: appropriate mood/affect, intact judgment & insight - Labs CBC & Chem 7: 06/23/16 09:37 06/23/16 09:37
[2016-06-24] MEDS: HABITROL TD SCH (22:52)
--- NOTE | 2016-06-25 00:31 | Treadmill Report ---
THALLIUM STRESS TEST LEFT VENTRICLE: Left ventricular chamber size is within normal. Perfusion study demonstrates a small fixed apical defect with no reversibility on the rest of study. Gated analysis demonstrates normal left ventricular systolic function, ejection fraction 56%. CONCLUSION: Small fixed apical defect likely consistent with normal apical thinning. There is no reversible ischemia demonstrated on this study. Clinical correlation is recommended. JOB# [id number] CA/NTS
[2016-06-25] MEDS: DILAUDID IV PRN (04:52)
[2016-06-25] MEDS: ZOFRAN IV PRN (04:58)
[2016-06-25 06:24] LABS: INR 0.94 (0.87-1.13)
[2016-06-25 06:31] LABS: Anion Gap 16 mmol/L; Blood Urea Nitrogen 18 mg/dL (9-20); Calcium 9.1 mg/dL (8.4-10.2); Carbon Dioxide 29 mmol/L (22-30); Chloride 93.3 mmol/L (98-107); Glucose 98 mg/dL (75-100); Sodium 134 mmol/L (137-145)
[2016-06-25] MEDS ORDERED: PEPCID PO NR (07:00)
[2016-06-25] MEDS ORDERED: NACL 0.9% 1000 ML 1,000 ML IV SCH ×2 (07:00→13:00)
[2016-06-25] MEDS ORDERED: NACL 0.9% 1000 ML 1,000 ML ONE (09:35)
[2016-06-25] MEDS ORDERED: TYLENOL ONE (09:46)
[2016-06-25] MEDS: TYLENOL PO PRN (09:52)
[2016-06-25] MEDS: LOVENOX SUB-Q SCH (09:58)
[2016-06-25] MEDS ORDERED: HEPARIN/NS 5000 UNIT/500ML(CATH LAB) 500 ML IR ONE (10:43)
[2016-06-25] MEDS ORDERED: XYLOCAINE 2% INFILTRATI ONE ×2 (10:43→11:10)
[2016-06-25] MEDS ORDERED: SUBLIMAZE ONE (10:44)
[2016-06-25] MEDS ORDERED: VERSED ONE (10:44)
[2016-06-25] MEDS ORDERED: SUBLIMAZE IV ONE ×3 (11:09→11:38)
[2016-06-25] MEDS ORDERED: VERSED IV ONE ×2 (11:09→11:37)
--- NOTE | 2016-06-25 12:05 | Event Note ---
Date: 06/25/16 R/L heart cath done, no complications. Findings: 1. Severe -mean transvalve gradient 56, ALTHEA 0.75. 2. Angiographically normal arteries. 3. LVEF 40-45% by LV angio. 4. Mild pulmonary HTN. 5. O2 sats in R heart chambers show NO significant O2 step-up. Recommend AVR.
[2016-06-25] MEDS ORDERED: HALFPRIN EC PO SCH (13:00)
--- NOTE | 2016-06-25 13:13 | Anesthesia Day of Surgery ---
Anesthesia Day of Surgery - Day of Surgery Patient Examined: Yes Patient H&P Reviewed: Yes Patient is NPO: Yes Beta Blockers: Yes (06/25/16 AM)
--- NOTE | 2016-06-25 13:13 | Anesthesia Consultation ---
Anesthesia Consult and Med Hx - Airway Anesthetic Teeth Evaluation: Poor ROM Head & Neck: Inadequate Mental/Hyoid Distance: Adequate Mallampati Class: Class II Intubation Access Assessment: Probably Good - Pulmonary Exam CTA: Yes - Cardiac Exam Cardiac Exam: RRR - Pre-Operative Health Status ASA Pre-Surgery Classification: ASA3 Proposed Anesthetic Plan: MAC - Pulmonary Hx Smoking: Yes Hx Pneumonia: No (unknown) - Cardiovascular System Hx Hypertension: Yes Hx Coronary Artery Disease: Yes Hx Heart Attack/AMI: Yes (05/2015) Hx Peripheral Vascular Disease: Yes (severe) - Central Nervous System Hx Neuromuscular Disorder: No (h/o falls) CVA: No Hx Back Pain: No Hx Psychiatric Problems: Yes (mod dementia) - Gastrointestinal Hx Gastroesophageal Reflux Disease: No - Endocrine Hx Renal Disease: Yes (CKD stage IV) Hx End Stage Renal Disease: Yes Hx Insulin Dependent Diabetes: No Hx Non-Insulin Dependent Diabetes: Yes - Hematic Hx Anemia: Yes Hx Sickle Cell Disease: No - Other Systems Hx Alcohol Use: No Hx Substance Use: No Hx Cancer: Yes (colon) Hx Obesity: No
[2016-06-25] MEDS ORDERED: NACL 0.9% 500 ML 500 ML IV ONE (14:00)
--- NOTE | 2016-06-25 14:06 | Event Note ---
Date: 06/25/16 PLEASE DISREGARD ANESTHESIA CONSULT. NOTE ENTERED ON WRONG PATIENT.
[2016-06-25] MEDS ORDERED: PERCOCET 5/325 PO PRN (14:34)
--- NOTE | 2016-06-25 16:43 | Progress Note ---
Assessment and Plan Assessment and plan: Atypical chest pain - ACS ruled out Severe aortic stenosis - Confirmed by heart cath - Cardiology recommended valvular repair - will transfer to another facility History Interval history: Patient was seen and evaluated, he complains chest and leg pain which is chronic. Hospitalist Physical - Physical exam Narrative exam: Not in cardiopulmonary distress. The patient appeared well nourished and normally developed. Vital signs as documented. Head exam is unremarkable. No scleral icterus . Neck is without jugular venous distension, thyromegaly, or carotid bruits. Chest; reproducible chest pain. Lungs are clear to auscultation. Cardiac exam reveals regular rate and Rhythm. First and second heart sounds normal. No murmurs, rubs or gallops. Abdominal exam reveals normal bowel sounds, no masses, no organomegaly and no aortic enlargement. Extremities are nonedematous and both femoral and pedal pulses are normal. [employer]ES [employer]: Alert and oriented 3. No focal weakness. - Constitutional Vitals: Temp Pulse Resp BP Pulse Ox 98.6 F 77 16 97/52 99 06/25/16 07:30 06/25/16 14:20 06/25/16 10:00 06/25/16 15:30 06/25/16 10:00 General appearance: Present: no acute distress Results - Labs CBC & Chem 7: 06/23/16 09:37 06/25/16 05:42 Labs: Laboratory Last Values WBC 10.4 K/mm3 (4.5-11.0) 06/23/16 09:37 RBC 4.82 M/mm3 (3.65-5.03) 06/23/16 09:37 Hgb 14.5 gm/dl (11.8-15.2) 06/23/16 09:37 Hct 42.3 % (35.5-45.6) 06/23/16 09:37 MCV 88 fl (84-94) 06/23/16 09:37 MCH 30 pg (28-32) 06/23/16 09:37 MCHC 34 % (32-34) 06/23/16 09:37 RDW 13.3 % (13.2-15.2) 06/23/16 09:37 Plt Count 184 K/mm3 (140-440) 06/23/16 09:37 Lymph % (Auto) 30.3 % (13.4-35.0) 06/23/16 09:37 [place] % (Auto) 6.6 % (0.0-7.3) 06/23/16 09:37 Eos % (Auto) 6.3 % (0.0-4.3) H 06/23/16 09:37 Baso % (Auto) 0.1 % (0.0-1.8) 06/23/16 09:37 Lymph # 3.1 K/mm3 (1.2-5.4) 06/23/16 09:37 [place] # 0.7 K/mm3 (0.0-0.8) 06/23/16 09:37 Eos # 0.7 K/mm3 (0.0-0.4) H 06/23/16 09:37 Baso # 0.0 K/mm3 (0.0-0.1) 06/23/16 09:37 Seg Neutrophils % 56.7 % (40.0-70.0) 06/23/16 09:37 Seg Neutrophils # 5.9 K/mm3 (1.8-7.7) 06/23/16 09:37 PT 12.5 Sec. (12.2-14.9) 06/25/16 05:42 INR 0.94 (0.87-1.13) 06/25/16 05:42 APTT 33.8 Sec. (24.2-36.6) 06/23/16 10:25 Sodium 134 mmol/L (137-145) L 06/25/16 05:42 Potassium 4.0 mmol/L (3.6-5.0) 06/25/16 05:42 Chloride 93.3 mmol/L (98-107) L 06/25/16 05:42 Carbon Dioxide 29 mmol/L (22-30) 06/25/16 05:42 Anion Gap 16 mmol/L 06/25/16 05:42 BUN 18 mg/dL (9-20) 06/25/16 05:42 Creatinine 0.9 mg/dL (0.8-1.5) 06/25/16 05:42 Estimated GFR > 60 ml/min 06/25/16 05:42 BUN/Creatinine Ratio 20.00 % 06/25/16 05:42 Glucose 98 mg/dL (75-100) 06/25/16 05:42 Calcium 9.1 mg/dL (8.4-10.2) 06/25/16 05:42 Total Bilirubin 0.4 mg/dL (0.1-1.2) 06/23/16 09:37 Direct Bilirubin < 0.2 mg/dL (0-0.2) 06/23/16 09:37 AST 17 units/L (5-40) 06/23/16 09:37 ALT 22 units/L (7-56) 06/23/16 09:37 Alkaline Phosphatase 97 units/L (35-129) 06/23/16 09:37 Total Creatine Kinase 79 units/L (55-170) 06/23/16 20:10 CK-MB (CK-2) 1.2 ng/mL (0.0-4.0) 06/23/16 20:10 CK-MB (CK-2) Rel Index 1.5 (0-4) 06/23/16 20:10 Troponin T < 0.010 ng/mL (0.00-0.029) 06/23/16 20:10 NT-Pro-B Natriuret Pep 67.72 pg/mL (0-450) 06/23/16 09:37 Total Protein 6.7 g/dL (6.3-8.2) 06/23/16 09:37 Albumin 3.9 g/dL (3.9-5) 06/23/16 09:37 Albumin/Globulin Ratio 1.4 % 06/23/16 09:37 Urine Color Yellow (Yellow) 06/23/16 11:59 Urine Turbidity Clear (Clear) 06/23/16 11:59 Urine pH 5.0 (5.0-7.0) 06/23/16 11:59 Ur Specific [place] 1.019 (1.003-1.030) 06/23/16 11:59 Urine Protein <15 mg/dl mg/dL (Negative) 06/23/16 11:59 Urine Glucose (UA) Neg mg/dL (Negative) 06/23/16 11:59 Urine Ketones Neg mg/dL (Negative) 06/23/16 11:59 Urine Blood Neg (Negative) 06/23/16 11:59 Urine Nitrite Neg (Negative) 06/23/16 11:59 Urine Bilirubin Neg (Negative) 06/23/16 11:59 Urine Urobilinogen < 2.0 mg/dL (<2.0) 06/23/16 11:59 Ur Leukocyte Esterase Neg (Negative) 06/23/16 11:59 Urine WBC (Auto) 1.0 /HPF (0.0-6.0) 06/23/16 11:59 Urine RBC (Auto) 1.0 /HPF (0.0-6.0) 06/23/16 11:59 Urine Mucus Few /HPF 06/23/16 11:59 Urine Opiates Screen Presumptive negative 06/23/16 11:59 Urine Methadone Screen Presumptive negative 06/23/16 11:59 Ur Barbiturates Screen Presumptive negative 06/23/16 11:59 Ur Phencyclidine Scrn Presumptive negative 06/23/16 11:59 Ur Amphetamines Screen Presumptive negative 06/23/16 11:59 U Benzodiazepines Scrn Presumptive positive 06/23/16 11:59 Urine Cocaine Screen Presumptive negative 06/23/16 11:59 U Marijuana (THC) Screen Presumptive positive 06/23/16 11:59 Drugs of Abuse Note Disclamer 06/23/16 11:59
--- NOTE | 2016-06-25 17:16 | Event Note ---
Date: 06/25/16 Patient will transfer tomorrow to [facility]-Dr Freddy Cazares for evaluation for surgery for .
[2016-06-25 20:33] VITALS: BP 133/84
--- NOTE | 2016-06-25 23:05 | Cardiac Catherization Report ---
CARDIAC CATHETERIZATION REPORT REASON FOR STUDY: Chest pain, shortness of breath, severe aortic stenosis on echocardiogram. PROCEDURE: The patient was prepped and draped in a sterile fashion after informed consent. The right femoral artery and vein were entered using the Seldinger technique. A 6-Anguillan sheath was placed in the artery and an 8 Anguillan sheath in the vein. A [place]-Kayleen catheter was inserted into the vein and advanced to the pulmonary artery position. A right Judkin's catheter was then advanced to the left ventricle through the heavily calcified aortic valve. Cardiac output was measured using the thermodilution method. Simultaneous left and right heart filling pressures were then measured following which the [place]-Kayleen catheter was withdrawn through the right heart chambers. Oxygen saturations were measured in right heart chambers during withdrawal of the Verona-Kayleen. A hand-injection left ventricular angiogram was then performed following which the right Vanda catheter was pulled back across the aortic valve. Transaortic gradients were then obtained. Left and right coronary angiography was then performed. A #1 left Amplatz catheter was optimally used for the left coronary artery, and due to the high origin of the right coronary artery, this catheter was also used for right coronary angiography. The catheters were withdrawn, sheath withdrawn and hemostasis achieved using an Angio-Seal device on the femoral artery position, and manual compression over the femoral vein. The procedure was well tolerated by the patient and there are no complications. FINDINGS: HEMODYNAMICS: The mean right atrial pressure was 12. Right ventricular pressure was 40/12. Pulmonary artery pressure was 40/20. The mean pulmonary artery wedge pressure was 25. Left ventricular end-diastolic pressure was 25-28. Cardiac output was 5.7 liters per minute. Aortic stenosis: The left ventricular systolic pressure was 180 mmHg. Ascending aortic pressure was 109/80 mmHg. On pullback across the aortic valve, there was a 71 mmHg [id number] transaortic gradient. The mean transaortic gradient was 56 mmHg. Using the Gorlin equation, the aortic valve area was calculated as 0.75 square cm. Oxygen Saturations: The right atrial saturation was 64.5, right ventricle was 63, pulmonary artery was 63, and ascending aorta was 94%. CHOLANGIOGRAPHY : There was [id number] diffuse calcification involving the distal left main and proximal left anterior descending artery. The left main coronary artery, otherwise was free of significant disease. The left anterior descending artery and the diagonal branches were free of significant disease. The circumflex artery was a large dominant system, also free of significant disease. The right coronary artery originated anomalously, from the anterior wall of the ascending aorta, close to the left coronary ostium. This vessel was small, nondominant and also free of significant disease. There was mild left ventricular systolic dysfunction, mild diffuse hypokinesis, left ventricular ejection fraction 40-45%. CONCLUSION: 1. Mild to moderate increase in right and left heart filling pressures, mild pulmonary hypertension. 2. Severe aortic stenosis, with a mean transaortic gradient of 56, and aortic valve area 0.75 square cm. 3. Oxygen saturations in the right heart chambers, demonstrate no significant oxygen step up, no evidence of significant intracardiac shunt. 4. Widely patent coronaries, no significant obstructive coronary disease in the left circumflex dominant system. 5. Mild nonischemic cardiomyopathy, left ventricular ejection fraction 40-45%. RECOMMENDATION: The patient will be recommended for consideration of aortic valve replacement surgery. JOB# [id number] FABY/NTS
--- NOTE | 2016-06-26 10:20 | Discharge Summary ---
Providers - Providers Date of Admission: 06/23/16 10:42 Date of discharge: 06/26/16 Attending physician: SYBIL HOUSER MD 06/23/16 Consult to Cardiac Rehabilitation [CONS] Routine Reason For Exam: Phase I 06/23/16 13:53 Consult to Physician [CONS] Routine Consulting Provider: AYLIN FINCH Reason For Exam: PDA Place consult to:: carlos Notified:: carlos 06/25/16 12:05 Consult to Cardiac Rehabilitation [CONS] Routine Reason For Exam: Cardiac Rehab Evaluation Primary care physician: CAR ESCORT Hospitalization Reason for admission: Chest pain, severe Condition: Stable Hospital course: 45-year-old male admitted to the hospital for chest pain and aortic stenosis. Cardiac enzymes were negative, EKG normal, stress test was normal. Right and left heart cath showed severely stenoses. Cardiology recommended to transfer to [place] for surgical evaluation and we have explained the patient and agreed. But the patient left AMA on 06/25/2016 @21:47. I was not on service at that time. But during our conversation during the day time he didn't have any intent to left AMA. Disposition: LEFT AGAINST MEDICAL ADVICE Core Measure Documentation - Palliative Care Palliative Care/ Comfort Measures: Not Applicable - Core Measures Any of the following diagnoses?: none Exam - Physical Exam Narrative exam: The patient left after my shift is over and didn't examine him but I have a daily note on the same day. - Constitutional Vitals: Temp Pulse Resp BP Pulse Ox 97.9 F 75 21 133/84 96 06/25/16 20:32 06/25/16 20:32 06/25/16 20:32 06/25/16 20:32 06/25/16 20:32 Plan Follow up with: KELSI CRAIG MD [Primary Care Provider] - 3-5 Days
== END 2016-06-25 21:47 | disposition left against medical advice (07) | DRG 287 ==
LOC: ED 08:54 → 4A 10:42
PROVIDERS: ADMIT Internal Medicine; ATTEND Internal Medicine
PROC: 3E0234Z Introduction of Serum, Toxoid and Vaccine into Muscle, Percutaneous Approach (ICD-10-PCS; 2016-06-23)
PROC: 4A023N8 Measurement of Cardiac Sampling and Pressure, Bilateral, Percutaneous Approach (ICD-10-PCS; principal; 2016-06-25)
PROC: B2111ZZ Fluoroscopy of Multiple Coronary Arteries using Low Osmolar Contrast (ICD-10-PCS; 2016-06-25)
PROC: B2151ZZ Fluoroscopy of Left Heart using Low Osmolar Contrast (ICD-10-PCS; 2016-06-25)
DX: I35.0 Nonrheumatic aortic (valve) stenosis (principal); F41.9 Anxiety disorder, unspecified; F32.9 Major depressive disorder, single episode, unspecified; I25.10 Atherosclerotic heart disease of native coronary artery without angina pectoris; F17.200 Nicotine dependence, unspecified, uncomplicated; Z53.21 Procedure and treatment not carried out due to patient leaving prior to being seen by health care provider; Z82.49 Family history of ischemic heart disease and other diseases of the circulatory system; Z98.61 Coronary angioplasty status
CPT/HCPCS: 36415; 71010; 78452; 80048; 80074; 80307; 81001; 82550; 82553; 83880; 84484; 85025; 85610; 85730; 90686; 90732; 93005; 93010; 93017; 93306; 93460; 96374; 96375; 96376; 99406; A9502; C1760; C1769; C1894; J1170; J1644; J1650; J2250; J2270; J2405; J2785; J3010; J7030; Q9967